=== PATIENT | female | born 1980 | race Caucasian/White ===

== ENCOUNTER 2018-02-21 07:02 | Day surgery (SDC) | payer BC ==
[~2018-02-21] VITALS: Ht 160 cm; Wt 82.1 kg
[2018-02-21] VITALS (8 sets, daily range): BP systolic 113–130; BP diastolic 60–71; PULSE 76–111; TEMP 97.4–98.1
[~2018-02-21 07:02] MED LIST: CETIRIZINE; FORTAMET500 MG PO; METFORMIN500 MG PO; PRILOSEC 20MG20 MG PO; SINGULAIR10 MG PO; VENTOLIN0.09 MG IH; ZYRTEC-D 5 MG-11 TER PO
[2018-02-21] MEDS ORDERED: ZYRTEC ALLERGY10 MG PO (07:46)
[2018-02-21] MEDS ORDERED: COZAAR 50MG50 MG/TAB PO (07:47)
[2018-02-21] MEDS ORDERED: PRILOTC PO (07:47)
[2018-02-21] MEDS ORDERED: VITAMINC500CH PO (07:48)
[2018-02-21] MEDS ORDERED: SINGULAIR 110 MG/TAB PO (07:49)
[2018-02-21] MEDS ORDERED: MULTI VITAMINS1 TAB PO (07:49)
[2018-02-21] MEDS ORDERED: NAPROSYN 2250 MG/TAB PO (07:50)
[2018-02-21] MEDS ORDERED: VENTOLIN0.09 MG IH (07:50)
== END 2018-02-21 16:04 | disposition home or self-care (01) ==
LOC: SDCO 07:02
DX: K43.6 Other and unspecified ventral hernia with obstruction, without gangrene (principal); K42.0 Umbilical hernia with obstruction, without gangrene; E10.9 Type 1 diabetes mellitus without complications; I10 Essential (primary) hypertension; K21.9 Gastro-esophageal reflux disease without esophagitis; J45.909 Unspecified asthma, uncomplicated; Z79.899 Other long term (current) drug therapy
CPT/HCPCS: C1713; C1781; J0690; J1100; J1170; J1885; J2405; J2704; J2710; J3010; J7120

== ENCOUNTER 2019-10-29 14:30 | Outpatient (RCR) | payer OTHER ==
[~2019-10-29 14:30] MED LIST changes: +COZAAR 50MG50 MG/TAB PO; +MULTI VITAMINS1 TAB PO; +NAPROSYN 2250 MG/TAB PO; +PRILOTC PO; +SINGULAIR 110 MG/TAB PO; +VITAMINC500CH PO; +ZYRTEC ALLERGY10 MG PO
== END 2019-10-30 14:15 | disposition home or self-care (01) ==
LOC: WSC 14:30
DX: S39.012D Strain of muscle, fascia and tendon of lower back, subsequent encounter (principal)

== ENCOUNTER 2021-02-06 23:06 | Emergency (ER) | payer BC ==
[~2021-02-06] VITALS: Ht 160 cm; Wt 70.5 kg
[2021-02-06 23:12] VITALS: TEMP 98.1
[2021-02-07 01:00] VITALS: BP 124/82; PULSE 74
== END 2021-02-07 01:35 | disposition home or self-care (01) ==
LOC: COL.ER 23:06
DX: S00.83XA Contusion of other part of head, initial encounter (principal); F17.210 Nicotine dependence, cigarettes, uncomplicated; Z79.51 Long term (current) use of inhaled steroids; Y04.2XXA Assault by strike against or bumped into by another person, initial encounter

== ENCOUNTER 2021-10-12 11:15 | Outpatient (RCR) | payer OTHER | END 2021-10-13 | disposition home or self-care (01) | LOC: MKS.ESL.PT | DX: M54.50 Low back pain, unspecified (principal) ==

== ENCOUNTER 2021-11-23 09:15 | Outpatient (RCR) | payer OTHER | END 2021-12-11 | disposition home or self-care (01) | LOC: MKS.ESL.PT | DX: M54.50 Low back pain, unspecified (principal) ==